=== PATIENT | male | born 1960 | race Caucasian/White ===

== ENCOUNTER 2021-12-25 19:12 | Inpatient (IN) | payer OTHER ==
[2021-12-26 00:07] VITALS: BMI 18.1
[2021-12-26] MEDS ORDERED: MAG HYDROX/AL HYDROX/SIMETH 30 ML UNIT-DOSE CUP PO PRN (00:46)
[2021-12-26] MEDS ORDERED: ACETAMINOPHEN 325 MG TABLET (FP) PO PRN ×2 (00:46)
[2021-12-26] MEDS ORDERED: NICOTINE POLACRILEX 2 MG GUM BUC PRN (00:46)
[2021-12-26] MEDS ORDERED: MAGNESIUM HYDROX 2400MG/30ML ORAL SUSPENSION 30 ML CUP PO PRN (00:46)
[2021-12-26] MEDS ORDERED: DICYCLOMINE HCL 10 MG CAPSULE PO PRN (00:46)
[2021-12-26] MEDS ORDERED: MAGNESIUM CITRATE 300 ML BOTTLE PO PRN (00:46)
[2021-12-26] MEDS ORDERED: IBUPROFEN 400 MG TABLET (FP) PO PRN (00:46)
[2021-12-26] MEDS ORDERED: BENZOCAINE/MENTHOL (CHLORASEPTIC ) LOZENGE MM PRN (00:46)
[2021-12-26] MEDS ORDERED: LOPERAMIDE HCL 2 MG CAPSULE PO PRN (00:46)
[2021-12-26] MEDS ORDERED: hydrOXYzine PAMOATE 25 MG CAPSULE (FP) PO PRN (00:46)
[2021-12-26] MEDS ORDERED: ONDANSETRON *ODT* 4 MG TABLET SL PRN (00:46)
[2021-12-26] MEDS ORDERED: BISMUTH SUBSALICYLATE 524 MG/30 ML PO PRN (00:46)
[2021-12-26] MEDS: PRENATAL VITAMINS W/ FOLIC ACID TABLET (FP) PO SCH (10:25)
[2021-12-26] MEDS ORDERED: methaDONE HCL 10 MG TABLET (FOR DETOX USE ONLY) PO ONE (10:26)
[2021-12-26] MEDS ORDERED: cloNIDine HCL 0.1 MG TABLET PO PRN (10:26)
[2021-12-26] MEDS: NICOTINE 14 MG/24 HOURS TOPICAL PATCH TD SCH (10:26)
[2021-12-26 14:16] LABS: HEMATOCRIT 39.3 % (35.4-49); HEMOGLOBIN 13.1 GM/dL (11.7-16.9); MCH 25.7 pg (25.7-33.7); MCHC 33.2 g/dl (32.0-35.9); MEAN CELL VOLUME 77.4 fl (80-96); MEAN PLT VOLUME 7.9 fl (7.5-11.1); PLATELET COUNT 326 10^3/uL (134-434); RBC 5.07 M/mm3 (4.00-5.60); RDW 15.3 % (11.9-15.9); WHITE BLOOD COUNT 7.4 K/mm3 (4.0-10.0)
[2021-12-26 14:26] LABS: ALBUMIN 3.4 g/dl (3.4-5.0); BLOOD UREA NITROGEN 13.7 mg/dL (7-18); CALCIUM 9.4 mg/dL (8.5-10.1)
[2021-12-26 14:29] LABS: CREATININE 0.7 mg/dL (0.55-1.3)
[2021-12-26 14:30] LABS: BILIRUBIN,TOTAL 0.6 mg/dL (0.2-1); TOT PROT 8.7 g/dl (6.4-8.2)
[2021-12-26] MEDS: THIAMINE HCL 100 MG TABLET (FP) PO SCH (23:59)
[2021-12-26] MEDS: MELATONIN 5 MG TABLETS PO SCH (23:59)
[2021-12-27] MEDS ORDERED: methaDONE HCL 10 MG TABLET (FOR DETOX USE ONLY) ONE (09:56)
[2021-12-27] MEDS: PRENATAL VITAMINS W/ FOLIC ACID TABLET (FP) PO SCH (10:17)
[2021-12-27] MEDS: METHOCARBAMOL 500 MG TABLET PO PRN (10:18)
[2021-12-27] MEDS: NICOTINE 14 MG/24 HOURS TOPICAL PATCH TD SCH (10:18)
[2021-12-27] MEDS: THIAMINE HCL 100 MG TABLET (FP) PO SCH (23:26)
[2021-12-27] MEDS: MELATONIN 5 MG TABLETS PO SCH (23:26)
[2021-12-28] MEDS: hydrOXYzine PAMOATE 25 MG CAPSULE (FP) PO PRN (09:51)
[2021-12-28] MEDS: METHOCARBAMOL 500 MG TABLET PO PRN (09:51)
[2021-12-28] MEDS: diazePAM 5 MG TABLET PO PRN (09:52)
[2021-12-28] MEDS: PRENATAL VITAMINS W/ FOLIC ACID TABLET (FP) PO SCH (09:52)
[2021-12-28] MEDS: NICOTINE 14 MG/24 HOURS TOPICAL PATCH TD SCH (09:53)
[2021-12-28] MEDS ORDERED: methaDONE HCL 10 MG TABLET (FOR DETOX USE ONLY) PO ONE (10:00)
[2021-12-28] MEDS: THIAMINE HCL 100 MG TABLET (FP) PO SCH (22:46)
[2021-12-28] MEDS: MELATONIN 5 MG TABLETS PO SCH (22:46)
[2021-12-29] MEDS ORDERED: methaDONE HCL 10 MG TABLET (FOR DETOX USE ONLY) ONE (09:36)
[2021-12-29] MEDS: METHOCARBAMOL 500 MG TABLET PO PRN ×2 (10:34→16:17)
[2021-12-29] MEDS: hydrOXYzine PAMOATE 25 MG CAPSULE (FP) PO PRN (10:34)
[2021-12-29] MEDS: diazePAM 5 MG TABLET PO PRN ×2 (10:35→16:17)
[2021-12-29] MEDS: NICOTINE 14 MG/24 HOURS TOPICAL PATCH TD SCH (10:35)
[2021-12-29] MEDS: PRENATAL VITAMINS W/ FOLIC ACID TABLET (FP) PO SCH (10:35)
[2021-12-29] MEDS: THIAMINE HCL 100 MG TABLET (FP) PO SCH (23:54)
[2021-12-29] MEDS: MELATONIN 5 MG TABLETS PO SCH (23:54)
[2021-12-30] MEDS: IBUPROFEN 600 MG TABLET (FP) PO PRN ×2 (06:36→15:00)
[2021-12-30] MEDS: diazePAM 5 MG TABLET PO PRN ×3 (06:36→22:53)
[2021-12-30] MEDS ORDERED: methaDONE HCL 10 MG TABLET (FOR DETOX USE ONLY) PO ONE (10:00)
[2021-12-30] MEDS: PRENATAL VITAMINS W/ FOLIC ACID TABLET (FP) PO SCH (11:13)
[2021-12-30] MEDS: NICOTINE 14 MG/24 HOURS TOPICAL PATCH TD SCH (11:13)
[2021-12-30] MEDS: MELATONIN 5 MG TABLETS PO SCH (22:53)
[2021-12-30] MEDS: THIAMINE HCL 100 MG TABLET (FP) PO SCH (22:53)
[2021-12-30] MEDS: hydrOXYzine PAMOATE 25 MG CAPSULE (FP) PO PRN (22:53)
[2021-12-31 09:14] VITALS: BP 128/64; PULSE 88; TEMP 96.9
[2021-12-31] MEDS: NICOTINE 14 MG/24 HOURS TOPICAL PATCH TD SCH (11:00)
[2021-12-31] MEDS: IBUPROFEN 600 MG TABLET (FP) PO PRN (11:01)
[2021-12-31] MEDS: METHOCARBAMOL 500 MG TABLET PO PRN (11:01)
[2021-12-31] MEDS: PRENATAL VITAMINS W/ FOLIC ACID TABLET (FP) PO SCH (11:01)
[2021-12-31] MEDS: hydrOXYzine PAMOATE 25 MG CAPSULE (FP) PO PRN (11:01)
== END 2021-12-31 14:05 | disposition home or self-care (01) | DRG 897 ==
LOC: YASAS 19:12 → Y3N 23:14 → UNDOADMIN 23:14
PROVIDERS: ADMIT Allergy & Immunology; ATTEND Surgery
PROC: HZ2ZZZZ Detoxification Services for Substance Abuse Treatment (ICD-10-PCS; principal; 2021-12-25)
DX: F11.23 Opioid dependence with withdrawal (principal); Z68.1 Body mass index [BMI] 19.9 or less, adult; F17.210 Nicotine dependence, cigarettes, uncomplicated; F19.24 Other psychoactive substance dependence with psychoactive substance-induced mood disorder; R76.11 Nonspecific reaction to tuberculin skin test without active tuberculosis; R63.4 Abnormal weight loss; R26.89 Other abnormalities of gait and mobility; Z56.0 Unemployment, unspecified; Z59.00 Homelessness unspecified
CPT/HCPCS: 36415; 71046-TC-FY; 80053; 85027; 86780; 93005; 93010; C9803-CS; J0735; U0003; U0005